=== PATIENT | female | born 1965 | race Two or more races ===

== ENCOUNTER → 2023-04-06 | Emergency (ER) | payer OTHER ==
[~2023-04-06] VITALS: Ht 147.3 cm; Wt 67.1 kg
[2023-04-06 20:20] VITALS: BP 158/86
== END | disposition left against medical advice (07) ==
LOC: ER 20:00
DX: R51.9 Headache, unspecified (principal); I10 Essential (primary) hypertension; Z53.21 Procedure and treatment not carried out due to patient leaving prior to being seen by health care provider